=== PATIENT | male | born 1990 | race Caucasian/White ===

== ENCOUNTER 2020-12-05 13:02 | Emergency (ER) | payer MEDICAID ==
[~2020-12-05] VITALS: Ht 167.6 cm; Wt 77.3 kg
[2020-12-05 14:20] LABS: BASOPHILS % (AUTO) 0.4 % (0.0-2.0); LYMPHOCYTES # (AUTO) 1.4 K/uL (1.0-4.8); LYMPHOCYTES % (AUTO) 16.6 % (22.0-44.0); MEAN CORPUSCULAR HEMOGLOBIN 31.5 pg (26.0-34.0); MEAN CORPUSCULAR HGB CONC 33.2 G/dL (31.0-37.0); MEAN CORPUSCULAR VOLUME 95 fL (80-100); MONOCYTES # (AUTO) 0.7 K/uL (0.1-1.0); MONOCYTES % (AUTO) 8.6 % (2.0-9.0); NEUTROPHILS # (AUTO) 5.9 K/uL (1.8-7.7); NEUTROPHILS % (AUTO) 68.4 % (40.0-70.0); PLATELET COUNT (AUTO) 257 K/uL (150-450); RED BLOOD CELL COUNT(AUTO) 4.43 MIL/uL (4.50-5.90); RED CELL DISTRIBUTION WIDTH 13.6 % (11.5-14.5)
[2020-12-05 14:32] LABS: ANION GAP 6 mmol/L (8-16); CALCIUM, TOTAL 8.5 mg/dL (8.8-10.5); CARBON DIOXIDE 27 mmol/L (22-29); CHLORIDE 107 mmol/L (98-107); CREATININE 0.83 mg/dL (0.60-1.30); GLOMERULAR FILTR. RATE CALC > 60 mL/min (>60); GLUCOSE,RANDOM 121 mg/dL (70-110); POTASSIUM 4.3 mmol/L (3.5-5.1); SODIUM SERUM 140 mmol/L (136-145); UREA NITROGEN, BLOOD 11 mg/dL (7-18)
[2020-12-05 14:35] LABS: ALBUMIN 3.4 g/dL (3.4-5.0); LIPASE 62 U/L (73-393)
[2020-12-05 14:47] LABS: ALANINE AMINOTRANSFERASE 67 U/L (12-78); ALKALINE PHOSPHATASE 117 U/L (46-116); ASPARTATE AMINOTRANSFERASE 30 U/L (15-37); BILIRUBIN,TOTAL 0.2 mg/dL (0.1-1.0); TOTAL PROTEIN, SERUM 6.4 g/dL (6.4-8.2)
[2020-12-05 15:00] LABS: APPEARANCE,URINE CLEAR (CLEAR); BILIRUBIN,URINE NEGATIVE (NEGATIVE); GLUCOSE, URINE (UA) NEGATIVE (NEGATIVE); KETONES,URINE TRACE mg/dL (NEGATIVE); LEUKOCYTE ESTERASE ,URINE NEGATIVE (NEGATIVE); NITRATE,URINE NEGATIVE (NEGATIVE); OCCULT BLOOD,URINE NEGATIVE (NEGATIVE); PROTEIN,URINE NEGATIVE (NEGATIVE)
[2020-12-05] MEDS ORDERED: PB/HYOSCY/ATR/SCOP/LIDO/MAALOX 55 ML BOTTLE PO ONE (15:30)
[2020-12-05 16:00] VITALS: BP 133/68
== END 2020-12-05 16:02 | disposition home or self-care (01) ==
LOC: EMS 13:02
DX: R10.33 Periumbilical pain (principal); R11.0 Nausea
CPT/HCPCS: 99283

== ENCOUNTER 2023-04-02 14:09 | Emergency (ER) | payer MEDICAID ==
[~2023-04-02] VITALS: Ht 172.7 cm; Wt 72.7 kg
[2023-04-02 14:11] VITALS: TEMP 98.7
[2023-04-02 14:53] VITALS: BP 157/83; PULSE 84; RESP 16
[2023-04-02 15:02] LABS: COVID AG,FIA SOURCE NASOPHARYNGEAL
[2023-04-02] MEDS ORDERED: LORA10TA7 PO (15:33)
[2023-04-02] MEDS ORDERED: BENZ-227 PO (15:33)
== END 2023-04-02 16:16 | disposition home or self-care (01) ==
LOC: EMS 14:09
DX: J40 Bronchitis, not specified as acute or chronic (principal); R21 Rash and other nonspecific skin eruption; Z20.822 Contact with and (suspected) exposure to COVID-19
CPT/HCPCS: 71045; 99284